=== PATIENT | female | born 1990 | race Caucasian/White ===

== ENCOUNTER 2022-08-06 22:30 | Emergency (ER) | payer MEDICAID, SELFPAY ==
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
[2022-08-06 22:32] VITALS: BP 114/69; PULSE 75; RESP 18; TEMP 36.3; O2SAT 100; BMI 36.5
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
== END 2022-08-06 23:43 | disposition home or self-care (01) ==
PROVIDERS: Emergency Provider Emergency Medicine
DX: S20.219A Contusion of unspecified front wall of thorax, initial encounter (principal); Y04.2XXA Assault by strike against or bumped into by another person, initial encounter; Y93.89 Activity, other specified; Y92.019 Unspecified place in single-family (private) house as the place of occurrence of the external cause; Y99.9 Unspecified external cause status
CPT/HCPCS: 71046; 99282; 99283

== ENCOUNTER 2022-10-10 22:09 | Emergency (ER) | payer OTHER, SELFPAY ==
[2022-10-10 22:11] VITALS: BP 138/76; PULSE 60; RESP 18; TEMP 36.6; O2SAT 99; BMI 37.0
--- NOTE | 2022-10-10 22:27 | ED.DENTAL ---
HPI - Dental/Oral General Chief complaint: Dental/Oral Stated complaint: dental extraction 10/03 ear to jaw pain Time Seen by Provider: 10/10/22 22:21 Source: patient Mode of arrival: ambulatory Limitations: no limitations History of Present Illness HPI Narrative: 32-year-old female status post 2nd molar left lower tooth extraction last week, the extraction was complicated by fracture of the tooth, patient was sent home on amoxicillin and ibuprofen patient has been having severe mandibular pain radiating to the left ear. No fever, no chills. Related Data Previous Rx's Medication Instructions Recorded oxycodone 5 mg tablet 5 mg PO Q8H PRN pain #10 tabs 10/10/22 Allergies Allergy/AdvReac Type Severity Reaction Status Date / Time From [facility] Allergy Unknown SHORTNESS Uncoded 01/30/20 17:22 OF BREATH,SWELLING Review of Systems Review of Systems: All other systems are reviewed and are negative Constitutional: Reports as per HPI and Reports no additional constitutional complaints Eyes: Reports as per HPI and Reports no additional eye complaints Reports system reviewed and no additional complaints, except as documented Cardiovascular: Reports as per HPI and Reports no additional cardiovascular complaints Respiratory: Reports as per HPI and Reports no additional respiratory complaints Gastrointestinal: Reports as per HPI and Reports no additional gastrointestinal complaints Genitourinary: Reports no additional female genitourinary complaints Musculoskeletal: Reports no additional musculoskeletal complaints Skin/Breast: Reports system reviewed and no additional complaints, except as docu Psychiatric: Reports no additional psychiatric complaints Endocrine: Reports no additional endocrine complaints Hematologic/Lymphatic: Reports no additional hematologic/lymphatic complaints Allergic/Immunologic: Reports no additional allergic/immunologic complaints Reports system reviewed and no additional complaints, except as documented and Reports Abnormal speech present Physical Exam Vital Signs: Vital Signs: Last Vital Signs Temp 97.9 F 10/10/22 22:11 Pulse 60 10/10/22 22:11 Resp 18 10/10/22 22:11 BP 138/76 10/10/22 22:11 Pulse Ox 99 10/10/22 22:11 O2 Del Method Room Air 10/10/22 22:11 BMI result Body Mass Index 37.0 Vital signs have been reviewed as appeared to be correct. Blood pressure normal. Heart rate normal. Respiration rate normal. Temperature normal. Oxygen saturation normal. Appearance: Alert. Oriented X3. No acute distress. Head: Normal external exam. Normocephalic. Atraumatic. No Bryant signs noted. No raccoon eyes noted, slight tenderness around tooth 19. No fluctuation, no abscess, very tender to touch. Eyes: PERRLA. EOMI. Conjunctiva and sclera normal. Eyelids normal. ENT: TM's Normal. Pharynx normal. Uvula midline. Moist mucous membranes. No trismus noted. No drooling noted. No muffled voice noted. Neck: Normal inspection. Neck supple. FROM. No adenopathy. Thyroid Normal. No meningeal signs. No neck mass noted. CVS: Normal heart rate and rhythm. Heart sound normal. No murmurs noted. Pulses normal throughout. Respiratory: No respiratory distress. Painless inspiration. Breath sounds normal. No wheezes/rales/rhonchi noted. Chest nontender. No accessory muscle usage noted or decreased air movement noted. Abdomen: Soft and nontender. Bowel sounds normal in all 4 quadrants. No distention noted. No organomegaly noted. No visible injury noted. Back: No CVA tenderness. Full range of motion noted. Skin: Skin warm and dry. Normal skin color. Normal skin turgor. No rashes/lesions/lacerations noted. Extremities: No lower extremity edema. Extremities exhibit normal range of motion. Extremities nontender. Neuro: Oriented X 3. Cranial nerve exam: II-XII are grossly intact No motor deficit. No sensory deficit. Reflexes normal. Course Course Course Narrative: Complicated tooth extraction by fracture of the tooth. No obvious infection patient is covered with amoxicillin here for severe pain will prescribe oxycodone patient was instructed to follow up with her dentist to get an oral surgeon referral. Medical Decision Making Differential Diagnosis Differential Diagnoses: The differential diagnosis associated with the presentation includes Gingivitis, gingival abscess, dry socket. Discharge Plan Discharge Clinical Impression: Toothache Patient Disposition: Home, Self-Care Instructions: Toothache (ED) Additional Instructions: Follow-up with your dentist and request oral surgeon referral. Prescriptions: New oxycodone 5 mg tablet 5 mg PO Q8H PRN (Reason: pain) Qty: 10 0RF Rx Instructions: Partial Fill upon patient request.
[2022-10-10] MEDS: oxyCODONE HCl Immed Release 5 MG TABLET 10 MG PO (22:43)
== END 2022-10-10 22:46 | disposition home or self-care (01) ==
PROVIDERS: Emergency Provider Emergency Medicine
DX: K08.89 Other specified disorders of teeth and supporting structures (principal)
CPT/HCPCS: 99283